=== PATIENT | female | born 1945 | race Hispanic/Latino ===

== ENCOUNTER 2024-06-16 07:38 | Emergency (ER) | payer OTHER ==
[~2024-06-16] VITALS: Ht 154.9 cm; Wt 56.7 kg
[2024-06-16 08:25] LABS: COVID19 (SARS ANTIGEN RAPID) PRESUMPTIVE NEGATIVE (NEGATIVE); INFLUENZA TYPE A Negative For Type A (NEGATIVE); INFLUENZA TYPE B Negative For Type B (NEGATIVE)
[2024-06-16] MEDS ORDERED: CEFP200T14 PO (09:24)
[2024-06-16] MEDS: cefTRIAXone 1G VIAL IM ONE (09:40)
[2024-06-16 09:41] VITALS: BP 138/81; PULSE 78; RESP 18; TEMP 98.1; O2SAT 98
== END 2024-06-16 09:42 | disposition home or self-care (01) ==
LOC: EDH 07:38
DX: J06.9 Acute upper respiratory infection, unspecified (principal); I10 Essential (primary) hypertension; Z20.822 Contact with and (suspected) exposure to COVID-19; Z90.49 Acquired absence of other specified parts of digestive tract; Z90.710 Acquired absence of both cervix and uterus; Z98.84 Bariatric surgery status
CPT/HCPCS: 99284; 71045; 87426; 87804 ×2; 96372; J0696